=== PATIENT | female | born 1935 | race Caucasian/White ===

== ENCOUNTER 2018-05-05 01:07 | Emergency (ER) | payer OTHER, MEDICARE ==
[2018-05-05] MEDS ORDERED: ONDANSETRON 4 MG/2 ML VIAL IVP ONE ×2 (01:23→02:30)
[2018-05-05] MEDS ORDERED: fentaNYL 100 MCG/2 ML INJ ONE (01:57)
[2018-05-05] MEDS ORDERED: fentaNYL 100 MCG/2 ML INJ IVP ONE (02:03)
--- NOTE | 2018-05-05 02:33 | EDPHY ---
H & P Stated Complaint: face bleeding and swelling Time Seen by Provider: 05/05/18 01:16 HPI/ROS: Chief Complaint: Face bleeding and swelling HPI: 82-year-old woman who is 2 days status post Mohs procedure on her right face and had a plastics reconstruction yesterday at [facility] by Dr. Barron. While in bed this morning the patient felt a sensation of increased pressure in her face and noticed significant swelling and then bleeding from her incision. On EMS arrival they would estimate approximately 500 mL of blood loss on the linens in the home. Patient is complaining of pain in the right side of her face. She is not able to see out of her right eye because the swelling. No headache. No fevers or chills. She is not on any blood thinning medications. No falls or other injuries. ROS: 10 systems were reviewed and were negative except those elements noted in the HPI. Social History: No smoking, no alcohol, no recreational drug use Family History: non-contributory Physical Exam: Gen: Awake, Alert, No Distress HEENT: Patient has dramatic swelling over her right cheek with dehiscence of her incision below her right eye. She is unable to open her IV secondary to the swelling. There is a small amount of active oozing in the low noted large hematoma extending from the infraorbital region just over to anterior to her ear. The remainder of the incision is intact. No erythema, no purulence Nose: no rhinorrhea Eyes: PERRLA, EOMI, no proptosis (utilizing lid retractors) Mouth: Moist mucosa Neck: Supple, no JVD Chest: nontender, lungs clear to auscultation Heart: S1, S2 normal, no murmur Abd: Soft, non-tender, no guarding Back: no CVA tenderness, no midline tenderness Ext: no edema, non-tender Skin: no rash Neuro: CN II-XII intact, Sensation grossly intact, Strength 5/5 in bilateral upper and lower extremities - Personal History Current Tetanus/Diphtheria Vaccine: Yes Current Tetanus Diphtheria and Acellular Pertussis (TDAP): Yes - Medical/Surgical History Hx Asthma: No Hx Chronic Respiratory Disease: No Hx Diabetes: No Hx Cardiac Disease: No Hx Renal Disease: No Hx Cirrhosis: No Hx Alcoholism: No Hx HIV/AIDS: No Hx Splenectomy or Spleen Trauma: No Other PMH: bilat hip replacement, skin cancer removed from right side of face - Social History Smoking Status: Never smoked Constitutional: Initial Vital Signs Temperature (C) 36.9 C 05/05/18 01:07 Heart Rate 59 L 05/05/18 01:07 Respiratory Rate 16 05/05/18 01:07 Blood Pressure 182/99 H 05/05/18 01:07 O2 Sat (%) 92 05/05/18 01:07 O2 Delivery Mode Room Air Allergies/Adverse Reactions: oxycodone Allergy (Verified 05/05/18 01:22) Home Medications: Medication Instructions Recorded NK [No Known Home Meds] 05/05/18 Medical Decision Making Procedures: ED procedure: Hematoma evacuation. Indication: Or drape surgical hematoma with significant pain. Area was prepped with alcohol prep. The sutures were cut by me. Using sterile swabs and sterile technique clot was evacuated from the incision site. Patient tolerated this well. There is no active bleeding noted. The incisions were then dressed with gauze and a pressure dressing using Coban. There were no complications. ED Course/Re-evaluation: 82-year-old woman status post Mohs procedure in reconstruction right cheek with development of a right cheek hematoma. No evidence of ocular involvement. No retro bulbar hematoma or proptosis. I have discussed with Dr. Barron. He has requested that I a remove the running suture on the incision just anterior to her ear and decompress the hematoma. If there is no further bleeding plan will be to keep the patient NPO and he will see the patient in his office in the morning for planned revision. Patient has had the hematoma evacuated by me. I sent pictures both pre and post to Dr. Barron. There is no change in the plan at this time. Patient is improved. She tolerated the procedure with fentanyl well. She has been observed in the emergency department for an hour given a L fluid. She has reporting that her pain is resolved. Plan will be to discharge with the aforementioned plan. Patient is up and ambulating the emergency department. Pain is resolved. No further bleeding. Will discharge to home. She will remain NPO. She will follow up with Dr. Browne at 9:00 a.m. In his office. - Data Points Medications Given: Discontinued Medications Fentanyl (Sublimaze) 100 mcg IVP EDNOW ONE Stop: 05/05/18 02:04 Last Admin: 05/05/18 02:03 Dose: 100 mcg Sodium Chloride (Ns) 1,000 mls @ 0 mls/hr IV ONCE ONE; Wide Open PRN Reason: Protocol Stop: 05/05/18 03:12 Last Admin: 05/05/18 03:12 Dose: 1,000 mls Ondansetron HCl (Zofran) 4 mg IVP EDNOW ONE Stop: 05/05/18 01:24 Last Admin: 05/05/18 01:45 Dose: 4 mg Ondansetron HCl (Zofran) 4 mg IVP EDNOW ONE Stop: 05/05/18 02:31 Last Admin: 05/05/18 02:31 Dose: 4 mg Departure - Departure Disposition: Home, Routine, Self-Care Clinical Impression: Hematoma Condition: Good Instructions: Hematoma (ED) Additional Instructions: Do not eat or drink anything until your seen by your plastic surgeon this morning. Follow up with Dr. Browne at 9:00 a.m. In his office this morning. Return to the emergency department for uncontrolled bleeding, lightheadedness, fainting, chest pain, shortness of breath, uncontrolled pain, or any other concerns.
[2018-05-05] MEDS ORDERED: NS 1,000 ML IV ONE (03:11)
[2018-05-05 03:36] VITALS: BP 121/70
== END 2018-05-05 03:45 | disposition home or self-care (01) ==
DX: L76.32 Postprocedural hematoma of skin and subcutaneous tissue following other procedure (principal)
CPT/HCPCS: 96374; 96375; 96376; 99284; J2405; J3010

== ENCOUNTER → 2018-07-06 | Outpatient (CLI) | payer OTHER, MEDICARE | LOC: BMCIMAGING 10:34 | PROVIDERS: ATTEND Internal Medicine | DX: Z13.820 Encounter for screening for osteoporosis (principal); E28.39 Other primary ovarian failure; M85.89 Other specified disorders of bone density and structure, multiple sites ==